=== PATIENT | female | born 2000 | race Two or more races ===

== ENCOUNTER 2023-06-26 00:13 | Emergency (ER) | payer SELFPAY ==
[~2023-06-26] VITALS: Ht 170.2 cm; Wt 109.1 kg
[2023-06-26 00:19] VITALS: BP 130/68; PULSE 126; RESP 18; TEMP 98.9
[2023-06-26] MEDS ORDERED: TEST5GEL27 TD (00:22)
[2023-06-26 02:45] LABS: BASOPHILS % (AUTO) 0.1 % (0.0-2.0); EOSINOPHILS % (AUTO) 0 % (1.0-6.0); HEMATOCRIT 38.8 % (36-46); LYMPHOCYTES # (AUTO) 0.9 K/uL (1.0-4.8); MEAN CORPUSCULAR HEMOGLOBIN 28.6 pg (26.0-34.0); MEAN CORPUSCULAR HGB CONC 33.5 G/dL (31.0-37.0); MEAN CORPUSCULAR VOLUME 85 fL (80-100); MONOCYTES # (AUTO) 1.1 K/uL (0.1-1.0); MONOCYTES % (AUTO) 7.3 % (2.0-9.0); NEUTROPHILS # (AUTO) 12.9 K/uL (1.8-7.7); PLATELET COUNT (AUTO) 239 K/uL (150-450); RED BLOOD CELL COUNT(AUTO) 4.56 MIL/uL (4.00-5.20); WHITE BLOOD COUNT (AUTO) 14.9 K/uL (4.5-11.0)
[2023-06-26 02:46] LABS: NEUTROPHILS % (AUTO) 86.6 % (40.0-70.0)
[2023-06-26 02:54] LABS: ANION GAP 14 mmol/L (8-16); CALCIUM, TOTAL 9.2 mg/dL (8.8-10.5); CARBON DIOXIDE 23 mmol/L (22-29); CHLORIDE 100 mmol/L (98-107); GLOMERULAR FILTR. RATE CALC > 60 mL/min (>60); GLUCOSE,RANDOM 116 mg/dL (70-110); POTASSIUM 3.8 mmol/L (3.5-5.1); SODIUM SERUM 137 mmol/L (136-145); UREA NITROGEN, BLOOD 9 mg/dL (7-18)
[2023-06-26 03:02] LABS: ALANINE AMINOTRANSFERASE 29 U/L (12-78); ALBUMIN 4.1 g/dL (3.4-5.0); ALKALINE PHOSPHATASE 106 U/L (46-116); ASPARTATE AMINOTRANSFERASE 22 U/L (15-37); BILIRUBIN,TOTAL 0.8 mg/dL (0.1-1.0); TOTAL PROTEIN, SERUM 7.4 g/dL (6.4-8.2)
[2023-06-26] MEDS ORDERED: AMOX1TAB16 PO (03:21)
[2023-06-26] MEDS: AMOX TR/POT CLAV 875 MG/125 MG TABLET PO ONE (03:27)
== END 2023-06-26 03:34 | disposition home or self-care (01) ==
LOC: EMS 00:19
DX: L03.90 Cellulitis, unspecified (principal)
CPT/HCPCS: 80053; 84703; 85025; 99283

== ENCOUNTER 2023-06-26 19:08 | Emergency (ER) | payer OTHER ==
[~2023-06-26] VITALS: Ht 170.2 cm; Wt 109.1 kg
[~2023-06-26 19:08] MED LIST: AMOX1TAB16 PO; TEST5GEL27 TD
[2023-06-26 19:09] VITALS: TEMP 98.3
[2023-06-26 21:15] VITALS: BP 128/80; PULSE 84; RESP 18
[2023-06-26] MEDS: BACITRACIN 28 GM OINTMENT TP ONE (21:15)
== END 2023-06-26 21:16 | disposition home or self-care (01) ==
LOC: EMS 19:09
DX: L03.115 Cellulitis of right lower limb (principal)
CPT/HCPCS: 99285; Z7502; Z7610

== ENCOUNTER 2024-02-03 15:52 | Emergency (ER) | payer OTHER ==
[~2024-02-03] VITALS: Ht 170.2 cm; Wt 107.0 kg
[~2024-02-03 15:52] MED LIST changes: +AMOX-457 PO; -AMOX1TAB16 PO
[2024-02-03] MEDS: ACETAMINOPHEN 500 MG TABLET PO ONE (20:04)
[2024-02-03] MEDS: LIDOCAINE 1% 10 ML VIAL ID ONE (20:05)
[2024-02-03] MEDS: IBUPROFEN 600 MG TABLET PO ONE (20:05)
[2024-02-03 20:49] LABS: HEMATOCRIT 39.4 % (36-46); MEAN CORPUSCULAR HEMOGLOBIN 28.6 pg (26.0-34.0); MEAN CORPUSCULAR HGB CONC 33.1 G/dL (31.0-37.0); MEAN CORPUSCULAR VOLUME 87 fL (80-100); PLATELET COUNT (AUTO) 282 K/uL (150-450); RED BLOOD CELL COUNT(AUTO) 4.56 MIL/uL (4.00-5.20); RED CELL DISTRIBUTION WIDTH 14.3 % (11.5-14.5); WHITE BLOOD COUNT (AUTO) 13.1 K/uL (4.5-11.0)
[2024-02-03 21:03] LABS: ANION GAP 12 mmol/L (8-16); CALCIUM, TOTAL 8.6 mg/dL (8.8-10.5); CARBON DIOXIDE 23 mmol/L (22-29); CHLORIDE 103 mmol/L (98-107); CREATININE 0.89 mg/dL (0.60-1.30); GLOMERULAR FILTR. RATE CALC > 60 mL/min (>60); GLUCOSE,RANDOM 98 mg/dL (70-110); POTASSIUM 3.7 mmol/L (3.5-5.1); SODIUM SERUM 138 mmol/L (136-145); UREA NITROGEN, BLOOD 6 mg/dL (7-18)
[2024-02-03] MEDS: MORPHINE SULFATE 4 MG/ML SYRINGE IVP ONE (21:10)
[2024-02-03] MEDS: ONDANSETRON HCL 4 MG/2 ML VIAL IVP ONE (21:10)
[2024-02-03 21:13] LABS: BAND NEUTROPHILS % (MANUAL) 4 % (0-5); LYMPHOCYTES % (MANUAL) 9 % (22-44); MONOCYTES % (MANUAL) 5 % (2-9); RBC MORPHOLOGY COMMENT NORMAL RBC MORPH; SEGMENTED NEUTROPHILS % 82 % (40-70); TOTAL CELLS COUNTED 100
[2024-02-03] MEDS ORDERED: IBUP-1492 PO (22:06)
[2024-02-03] MEDS ORDERED: DOXY-354 PO (22:06)
[2024-02-03] MEDS: CefTRIAXone 1 GM/DEXTROSE 50 ML IV ONE (22:13)
[2024-02-03] MEDS: DOXYCYCLINE HYCLATE 100 MG TABLET PO ONE (22:16)
[2024-02-03 22:35] VITALS: BP 135/77; PULSE 93; RESP 18; TEMP 97.8; O2SAT 96
== END 2024-02-03 23:13 | disposition home or self-care (01) ==
LOC: EMS 15:52
DX: L02.416 Cutaneous abscess of left lower limb (principal); L03.116 Cellulitis of left lower limb
CPT/HCPCS: 99284; 96365; 10060; 96375; 80048; 85025; 36415; J0696; J2270; J2405; J3490

== ENCOUNTER 2024-02-05 16:25 | Emergency (ER) | payer OTHER ==
[~2024-02-05] VITALS: Ht 170.2 cm; Wt 106.0 kg
[~2024-02-05 16:25] MED LIST changes: -AMOX-457 PO; +DOXY-354 PO; +IBUP-1492 PO
[2024-02-05 16:30] VITALS: BP 129/77; PULSE 88; RESP 16; TEMP 98.4; O2SAT 98
[2024-02-05] MEDS: BACITRACIN 28 GM OINTMENT TP ONE (17:00)
== END 2024-02-05 17:29 | disposition home or self-care (01) ==
LOC: EMS 16:25
DX: L02.416 Cutaneous abscess of left lower limb (principal)
CPT/HCPCS: 99282; Z7502; Z7610